=== PATIENT | male | born 1945 | race Caucasian/White ===

== ENCOUNTER → 2018-04-02 14:59 | Outpatient (CLI) | payer MEDICARE, SELFPAY ==
[2018-04-02 16:40] LABS: Thyroid Stimulating Hormone 2.01 uIU/mL (0.47-4.68)
== END ==
PROVIDERS: PCP Internal Medicine; Visit Provider Internal Medicine
DX: R63.4 Abnormal weight loss (principal)
CPT/HCPCS: 36415; 84443

== ENCOUNTER → 2019-02-19 13:49 | Outpatient (CLI) | payer MEDICARE, SELFPAY ==
[2019-02-19 14:25] LABS: BUN Creatinine Ratio 23.3 (6-22); Blood Urea Nitrogen 21 mg/dL (9-20); Carbon Dioxide 27 mmol/L (22-32); Chloride 100 mmol/L (98-107); Estimated Glomerular Filt Rate > 60.0 mL/min (>60); Glucose 89 mg/dL (80-110); HEMOLYSIS < 15 (0-50); Potassium 4.8 mmol/L (3.4-5.1); Sodium 139 mmol/L (137-145); Uric Acid 3.7 mg/dL (3.5-8.5)
[2019-02-19 16:02] LABS: Vitamin D 25 Hydroxy (D3) 31.1 ng/mL (30.0-100.0)
== END ==
PROVIDERS: PCP Student in an Organized Health Care Education/Training Program; Visit Provider Student in an Organized Health Care Education/Training Program
DX: E55.9 Vitamin D deficiency, unspecified (principal); I10 Essential (primary) hypertension; N20.0 Calculus of kidney
CPT/HCPCS: 36415; 80048; 82306; 84550

== ENCOUNTER → 2019-05-18 09:50 | Outpatient (CLI) | payer MEDICARE, SELFPAY ==
[2019-05-18 10:00] LABS: Bacteria Urine None Seen; RBC Urine None Seen (0-5/HPF); WBC Urine None Seen (0-5/HPF)
[2019-05-18 11:11] LABS: Hematocrit 41.1 % (41-53); Hemoglobin 13.9 g/dL (13.5-17.5); Mean Corpuscular HGB Conc 33.9 % (30-36); Mean Corpuscular Hemoglobin 31.7 PG (26-34); Mean Corpuscular Volume 93.4 fL (80-100); Platelet Count 187 X10^3/uL (150-400); Red Cell Distribution Width 12.7 % (11.6-14.8); White Blood Cell Count 4.2 X10^3/uL (4.5-11.0)
[2019-05-18 11:25] LABS: Neutrophils Absolute Manual 2688 /uL (3000-5900); RBC Morphology Normal Morphology; Total Cells Counted 100
[2019-05-18 12:31] LABS: Appearance Urine UA CLEAR; Bilirubin Urine UA NEGATIVE (NEGATIVE); Color Urine UA YELLOW; Glucose Urine UA NEGATIVE (Negative); Ketones Urine UA NEGATIVE (NEGATIVE); Leukocyte Esterase Urine UA NEGATIVE (NEGATIVE); Nitrite Urine UA NEGATIVE (Negative); Occult Blood Urine UA NEGATIVE (Negative); Protein Urine UA NEGATIVE (Negative); Specific Gravity Urine UA 1.015 (1.000-1.035); Urobilinogen Urine UA 0.2 E.U./dL (0.2); pH Urine UA 6.5 (4.5-8.0)
[2019-05-18 12:41] LABS: Culture Indicated Urine Cult Not Indicated; Urine Comments Microscopic Normal
== END ==
PROVIDERS: PCP Student in an Organized Health Care Education/Training Program; Visit Provider Nurse Practitioner
DX: R50.9 Fever, unspecified (principal); R68.84 Jaw pain; R35.0 Frequency of micturition
CPT/HCPCS: 36415; 81001; 85025

== ENCOUNTER → 2020-03-02 13:46 | Outpatient (CLI) | payer MEDICARE, SELFPAY ==
[2020-03-02 16:13] LABS: BUN Creatinine Ratio 23.3 (6-22); Blood Urea Nitrogen 21 mg/dL (9-20); Calcium 9.7 mg/dL (8.4-10.2); Carbon Dioxide 29 mmol/L (22-32); Chloride 101 mmol/L (98-107); Estimated Glomerular Filt Rate > 60.0 mL/min (>60); Glucose 86 mg/dL (80-110); HEMOLYSIS < 15 (0-50); Potassium 4.3 mmol/L (3.4-5.1); Sodium 138 mmol/L (137-145)
== END ==
PROVIDERS: PCP Student in an Organized Health Care Education/Training Program; Referring Provider Student in an Organized Health Care Education/Training Program; Visit Provider Student in an Organized Health Care Education/Training Program
DX: I10 Essential (primary) hypertension (principal)
CPT/HCPCS: 36415; 80048

== ENCOUNTER → 2020-03-08 11:56 | Outpatient (CLI) | payer MEDICARE, SELFPAY ==
[2020-03-09 08:50] LABS: Fecal Immunochemical Test Negative (Negative)
== END ==
PROVIDERS: PCP Student in an Organized Health Care Education/Training Program; Referring Provider Student in an Organized Health Care Education/Training Program; Visit Provider Student in an Organized Health Care Education/Training Program
DX: Z12.11 Encounter for screening for malignant neoplasm of colon (principal)
CPT/HCPCS: 82274

== ENCOUNTER → 2020-11-23 13:48 | Outpatient (CLI) | payer MEDICARE, OTHER, SELFPAY ==
[2020-11-23] MEDS: COVID-19 VACC #1, MRNA(MOD) 100 MCG/0.5 ML VIAL IM (14:00)
== END ==
PROVIDERS: PCP Student in an Organized Health Care Education/Training Program; Visit Provider Internal Medicine
DX: Z23 Encounter for immunization (principal)
CPT/HCPCS: 0011A; 91301

== ENCOUNTER → 2020-12-21 13:23 | Outpatient (CLI) | payer MEDICARE, OTHER, SELFPAY ==
[2020-12-21] MEDS: COVID-19 VACC #2, MRNA(MOD) 100 MCG/0.5 ML VIAL IM (13:33)
== END ==
PROVIDERS: PCP Student in an Organized Health Care Education/Training Program; Visit Provider Internal Medicine
DX: Z23 Encounter for immunization (principal)
CPT/HCPCS: 0012A; 91301

== ENCOUNTER → 2021-11-23 13:25 | Outpatient (CLI) | payer MEDICARE, OTHER, SELFPAY ==
[2021-11-23 14:29] LABS: BUN Creatinine Ratio 23.1 (6-22); Blood Urea Nitrogen 24 mg/dL (9-20); Calcium 9.7 mg/dL (8.4-10.2); Carbon Dioxide 29 mmol/L (22-32); Chloride 103 mmol/L (98-107); Cholesterol 148 mg/dL (140-199); Estimated Glomerular Filt Rate > 60.0 mL/min (>60); Glucose 94 mg/dL (80-110); HDL Cholesterol 53 mg/dL (40-60); HEMOLYSIS < 15 (0-50); LDL Cholesterol Calculated 68 mg/dL (<100); Potassium 4.6 mmol/L (3.4-5.1); Sodium 139 mmol/L (137-145); Triglycerides 134 mg/dL (35-150); Uric Acid 3.2 mg/dL (3.5-8.5)
== END ==
PROVIDERS: PCP Student in an Organized Health Care Education/Training Program; Referring Provider Student in an Organized Health Care Education/Training Program; Visit Provider Student in an Organized Health Care Education/Training Program
DX: I10 Essential (primary) hypertension (principal); E78.5 Hyperlipidemia, unspecified; N20.0 Calculus of kidney
CPT/HCPCS: 36415; 80048; 80061; 84550

== ENCOUNTER → 2022-12-24 14:34 | Outpatient (CLI) | payer MEDICARE, OTHER, SELFPAY ==
[2022-12-24 15:22] LABS: BUN Creatinine Ratio 25.6 (6-22); Blood Urea Nitrogen 23 mg/dL (9-20); Calcium 9.3 mg/dL (8.4-10.2); Carbon Dioxide 27 mmol/L (22-32); Chloride 101 mmol/L (98-107); Estimated Glomerular Filt Rate > 60 mL/min (>60); Glucose 89 mg/dL (80-110); HEMOLYSIS < 15 (0-50); Potassium 4.2 mmol/L (3.4-5.1); Sodium 137 mmol/L (137-145)
[2022-12-24 17:11] LABS: Hep C Virus Ab w/Reflex Quant NEGATIVE s/c (NEGATIVE)
== END ==
PROVIDERS: PCP Student in an Organized Health Care Education/Training Program; Referring Provider Student in an Organized Health Care Education/Training Program; Visit Provider Student in an Organized Health Care Education/Training Program
DX: Z11.59 Encounter for screening for other viral diseases (principal); I10 Essential (primary) hypertension
CPT/HCPCS: 36415; 80048; 86803

== ENCOUNTER → 2023-11-21 14:12 | Outpatient (CLI) | payer MEDICARE, OTHER, SELFPAY ==
[2023-11-21 15:18] LABS: Hematocrit 40.1 % (41-53); Hemoglobin 13.8 g/dL (13.5-17.5); Mean Corpuscular HGB Conc 34.3 % (30-36); Mean Corpuscular Hemoglobin 32.2 PG (26-34); Mean Corpuscular Volume 93.9 fL (80-100); Platelet Count 176 X10^3/uL (150-400); Red Blood Cell Count 4.27 X10^6/uL (4.5-5.9); Red Cell Distribution Width 13.4 % (11.6-14.8); White Blood Cell Count 5.7 X10^3/uL (4.5-11.0)
[2023-11-21 15:44] LABS: Alanine Aminotransferase 23 IU/L (<50); Albumin 4.8 g/dL (3.5-5.0); Albumin Globulin Ratio 1.7 (1.0-2.8); Alkaline Phosphatase 63 U/L (38-126); Aspartate Aminotransferase 33 IU/L (17-59); BUN Creatinine Ratio 27.7 (6-22); Blood Urea Nitrogen 28 mg/dL (9-20); Carbon Dioxide 25 mmol/L (22-32); Chloride 102 mmol/L (98-107); Cholesterol 174 mg/dL (140-199); Estimated Glomerular Filt Rate > 60 mL/min (>60); Globulin 2.9 g/dL (1.7-4.1); Glucose 93 mg/dL (80-110); HDL Cholesterol 49 mg/dL (40-60); HEMOLYSIS < 15 (0-50); LDL Cholesterol Calculated 109 mg/dL (<100); Potassium 4.6 mmol/L (3.4-5.1); Sodium 137 mmol/L (137-145); Total Protein 7.7 g/dL (6.3-8.2); Triglycerides 82 mg/dL (35-150)
[2023-11-21 16:15] LABS: TSH w/ Reflex to FT4 1.75 uIU/mL (0.47-4.68)
[2023-11-21 16:16] LABS: Prostate Specific Antigen 2.44 ng/mL (0.10-4.00)
== END ==
PROVIDERS: PCP Internal Medicine; Referring Provider Internal Medicine; Visit Provider Internal Medicine
DX: E78.2 Mixed hyperlipidemia (principal); I10 Essential (primary) hypertension; N40.0 Benign prostatic hyperplasia without lower urinary tract symptoms
CPT/HCPCS: 36415; 80053; 80061; 84153; 84443; 85027

== ENCOUNTER → 2023-11-29 16:02 | Outpatient (CLI) | payer MEDICARE, OTHER, SELFPAY ==
[2023-12-02 13:25] LABS: Fecal Immunochemical Test Negative (Negative)
== END ==
PROVIDERS: PCP Internal Medicine; Referring Provider Internal Medicine; Visit Provider Internal Medicine
DX: Z12.11 Encounter for screening for malignant neoplasm of colon (principal)
CPT/HCPCS: 82274

== ENCOUNTER 2024-07-15 08:36 | Day surgery (SDC) | payer MEDICARE, OTHER, SELFPAY ==
[2024-07-14 08:45] VITALS: BMI 23.9
[2024-07-15] VITALS (8 sets, daily range): BP systolic 110–145; BP diastolic 56–80; PULSE 65–77; RESP 12–22; TEMP 36.2–36.6; O2SAT 97–99; BMI 23.9
[2024-07-15] MEDS: LACTATED RINGERS 1,000 ML 42 ML IV ×2 (09:37→10:51)
--- NOTE | 2024-07-15 09:50 | PM.HP.1 ---
History of Present Illness History of Present Illness Date Patient Seen: 07/15/24 Time Patient Seen: 09:50 Chief complaint: [facility] [place] Narrative: 79M with a symptomatic right inguinal hernia here for elective laparoscopic repair. No interval change in health [facility] Medical History Osteoarthritis of cervical spine without myelopathy Inguinal hernia of right side without obstruction or gangrene Allergic rhinitis Erectile dysfunction Mixed hyperlipidemia Mumps Chicken pox Measles Pneumonia (2012) Fractures (1984) Shingles (2003) Sensorineural hearing loss (2006) BPH (benign prostatic hyperplasia) (2012) Hemorrhoids (1983) Skin cancer (1993) Cataract of both eyes (06/25/14) Hearing loss (03/06/12) Surgical History Anesthesia History of surgery (1983) History of lithotripsy (1999) Status post rotator cuff repair (2008) Status post colonoscopy (2009) Family History Child Age: 54 Hypertension High cholesterol Child Age: 51 High cholesterol Father High cholesterol Stroke Pneumonia Mother Dementia Intestinal obstruction Brother Brain tumor Cancer Social History household members: spouse Smoking Status: Former smoker alcohol intake: current Meds Home Medications and Allergies Home Medications Medication Instructions Recorded Confirmed Type cyclobenzaprine 10 mg tablet 10 mg PO TID PRN muscle spasm #20 11/21/16 07/15/24 Rx tabs ascorbic acid (vitamin C) 1,000 mg 1 g PO Q6H 11/21/23 07/15/24 History capsule cholecalciferol (vitamin D3) 50 50 mcg PO DAILY 11/21/23 07/15/24 History mcg (2,000 unit) capsule omega 8-xyh-zkw-fish oil 300 1 cap PO DAILY 11/21/23 07/15/24 History mg-1,000 mg capsule (Fish Oil) tadalafil 20 mg tablet 20 mg PO DAILY PRN sexual activity 11/21/23 07/15/24 Rx #30 tabs allopurinol 300 mg tablet 300 mg PO DAILY #90 tabs 12/17/23 07/15/24 Rx lisinopril 10 mg tablet 10 mg PO DAILY #90 tabs 12/17/23 07/15/24 Rx simvastatin 40 mg tablet 40 mg PO DAILY #90 tabs 12/17/23 07/15/24 Rx tamsulosin 0.4 mg capsule 0.8 mg (2 x 0.4 mg) PO BEDTIME 12/17/23 07/15/24 Rx #180 caps trazodone 50 mg tablet 50 mg PO BEDTIME PRN insomnia #90 12/17/23 07/15/24 Rx tabs Allergies Allergy/AdvReac Type Severity Reaction Status Date / Time grass pollen-perennial rye, Allergy Verified 07/15/24 09:05 standar house dust Allergy Verified 07/15/24 09:05 Exam Vital Signs (past 8 hours): - 07/15/24 09:19 Temperature 97.6 F Pulse Rate 77 Respiratory Rate 16 Blood Pressure 144/78 H Pulse Oximetry 97 Oxygen Delivery Method Room Air Oxygen Delivery Method Room Air Narrative Exam Narrative: General adult man alert oriented no acute distress Chest nonlabored respiration Abdomen right marked with my initials Extremities warm well perfused Assessment & Plan Assessment and plan (1) Inguinal hernia of right side without obstruction or gangrene: Status: Acute Assessment & Plan narrative: 79-year-old man with dramatic reducible right inguinal hernia here for laparoscopic repair. Overview of the operation once again reviewed. We discussed postoperative care and activity restriction. Operative risks including hemorrhage, infection, chronic pain, recurrence were reviewed. His questions have been answered. He provides his consent to proceed Time-Based Coding :: [TOTAL MINUTES] spent with patient and on the chart (including review of chart, obtaining history, exam, reviewing outside data, placing orders, documenting exam and treatment plan, and counseling patient) on [DATE].
[2024-07-15] MEDS: CEFAZOLIN 2 GM/100 ML PREMIX 100 ML IV (10:14)
--- NOTE | 2024-07-15 10:16 | SUR.OPER ---
Supine on padded OR bed, head on pillow, arms padded and tucked at sides, legs uncrossed, safety belt at thigh, tape over blanket over lower legs .
[2024-07-15] MEDS: BUPIVACAINE 0.25% (PF) VIAL 30 ML INJ (10:22)
--- NOTE | 2024-07-15 11:58 | SUR.OPER ---
Patient scheduled for a right sided laparoscopic hernia repair. Intraoperatively it was noted patient had a hernia on left side as well. Procedure changed to bilateral laparoscopic inguinal hernia repair. Surgeon to follow up with patient.
--- NOTE | 2024-07-15 12:06 | P.OP_ITS ---
Operative Date/Time/Diagnoses Date of procedure: 07/15/24 Time of procedure: 12:07 Pre-op diagnosis: right inguinal hernia Post-op diagnosis: other (bilateral inguinal hernia) Procedure & Clinicians Procedure: Laparoscopic bilateral inguinal hernia repair Same procedure as scheduled: Yes Indications: Symptomatic inguinal hernias Surgeon: Pio Ardon Architectural Intern: Zeke Solorzano Anesthesia Type: General Operative Notes Findings: Bilateral inguinal hernia Right-direct and indirect Left-indirect Specimen(s): none sent Estimated Blood Loss (mL): 20 Procedure in detail: The patient was brought to the operating room and placed supine on the table. Bilateral sequential compression devices were applied. General anesthesia was induced and they were intubated with an endotracheal tube. A conteh cath was placed in sterile fashion. They received 2g ancef prior to skin incision. They were prepped and draped in sterile fashion. A time out was performed to ensure the correct patient, procedure and necessary equipment within the operating room. The skin was infiltrated with 0.25% bupivicaine. A 1 cm supra umbilical midline incision was made. The fascia was sharply incised and the abdomen entered traumatically. A 10mm balloon port was placed and pneumoperitoneum was established at 15mm Hg. Inspection of the abdomen demonstrated no evidence of injury upon entry. Two 5 mm ports were then placed under direct visualization in the right and left lower quadrant lateral to the rectus muscle. A right direct and indirect defect was identified. Unexpectantly there was a large left indirect hernia seen. 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 He has obtained a administrator health care facility for the next few weeks but it is quite difficult for him to take time away from his duties and therefore we decided to proceed with bilateral inguinal hernia repair so he would not require an additional surgery. Beginning with the right the peritoneum 4 cm superior to the deep inguinal ring between the medial umbilical ligament and the anterior superior iliac spine was incised. The medial preperitoneal dissection was carried out into the space of Retzius bluntly, the bladder was swept inferior, the pubis and Rey's ligament were identified. Next attention was turned towards the lateral aspect of the peritoneal flap. The preperitoneal fat with the testicular vessels was carefully dissected off the inferior peritoneal flap. The cord was carefully inspected there was a fat containing indirect defect which was skeletonized off of the cord. The attachments to the direct hernia sac were divided and the direct defect was reduced. A large Bard 3D Max mesh was then placed into the abdomen and positioned such that the myopectineal orifice was completely covered with good overlap on all sides. The peritoneal flap was then repositioned back to its original position and a running V lock suture was used to close the peritoneum such that no bowel could herniate into the preperitoneal space. The area was examined for hemostasis. On the left the peritoneum 4 cm superior to the deep inguinal ring between the medial umbilical ligament and the anterior superior iliac spine was incised. The medial preperitoneal dissection was carried out into the space of Retzius bluntly, the bladder was swept inferiorly, the pubis and Rey's ligament were identified. Next attention was turned towards the lateral aspect of the peritoneal flap. The preperitoneal fat with the testicular vessels was c arefully dissected off the inferior peritoneal flap. The cord was carefully inspected there was large indirect hernia which was skeltonized off the cord preserving the testicular vessels and the vas deferns. There was no direct hernia. A large Bard 3D Max mesh was then placed into the abdomen and positioned such that the myopectineal orifice was completely covered with good overlap on all sides. The peritoneal flap was then repositioned back to its original position and a running V lock suture was used to close the peritoneum such that no bowel could herniate into the preperitoneal space. The area was examined for hemostasis. The 5mm trocars were removed under direct visualization and pneumoperitoneum was deflated through the umbilical trocar, The fascia at the umbilicus was closed w ith 0-Vicryl in figure of 8 fashion, skin closed with 4-0 Monocyl followed by Dermabond. The sponge and instrument count at the end of the case was correct. Both testicles were entirely within the scrotum at the end of the case. The patient emerged from anesthsia was extubated and transferred to recovery in stable condition. Complications: none Post-operative Condition: stable Disposition: same day surgery
== END 2024-07-15 12:52 | disposition home or self-care (01) ==
PROVIDERS: PCP Internal Medicine; Referring Provider Surgery; Visit Provider Surgery
PROC: 0YQ64ZZ Repair Left Inguinal Region, Percutaneous Endoscopic Approach (ICD-10-PCS; CPT 49650; principal; 2024-07-15 10:45)
DX: K40.20 Bilateral inguinal hernia, without obstruction or gangrene, not specified as recurrent (principal)
CPT/HCPCS: 49650; 82962; J0330; J0690; J1100; J2405; J2704; J3010

== ENCOUNTER → 2025-06-03 15:34 | Outpatient (CLI) | payer MEDICARE, OTHER, SELFPAY ==
[2025-06-03 16:16] LABS: Hematocrit 38.4 % (41-53); Hemoglobin 13.1 g/dL (13.5-17.5); Mean Corpuscular HGB Conc 34.2 % (30-36); Mean Corpuscular Hemoglobin 32.3 PG (26-34); Mean Corpuscular Volume 94.3 fL (80-100); Platelet Count 178 X10^3/uL (150-400)
[2025-06-03 16:53] LABS: INR 0.9 (0.9-1.3); Prothrombin Time 10.4 SECONDS (9.4-12.5)
[2025-06-03 16:55] LABS: PTT Partial Thromboplastin Tim 29 SECONDS (25.1-36.5)
[2025-06-03 17:01] LABS: Alanine Aminotransferase 20 IU/L (<50); Albumin 4.8 g/dL (3.5-5.0); Albumin Globulin Ratio 2.0 (1.0-2.8); Alkaline Phosphatase 64 U/L (38-126); Blood Urea Nitrogen 26 mg/dL (9-20); Calcium 10.0 mg/dL (8.4-10.2); Carbon Dioxide 26 mmol/L (22-32); Chloride 102 mmol/L (98-107); Cholesterol 179 mg/dL (140-199); Estimated Glomerular Filt Rate > 60 mL/min (>60); Globulin 2.4 g/dL (1.7-4.1); Glucose 90 mg/dL (70-99); HDL Cholesterol 49 mg/dL (40-60); HEMOLYSIS < 15 (0-50); Potassium 4.2 mmol/L (3.4-5.1); Sodium 140 mmol/L (137-145); Total Protein 7.2 g/dL (6.3-8.2); Triglycerides 202 mg/dL (35-150); Uric Acid 3.0 mg/dL (3.5-8.5)
[2025-06-03 17:31] LABS: Prostate Specific Antigen 2.33 ng/mL (0.10-4.00)
[2025-06-03 17:32] LABS: TSH w/ Reflex to FT4 1.96 uIU/mL (0.47-4.68)
== END ==
PROVIDERS: PCP Internal Medicine; Referring Provider Internal Medicine; Visit Provider Internal Medicine
DX: R35.1 Nocturia (principal); R23.3 Spontaneous ecchymoses; E78.2 Mixed hyperlipidemia; N40.1 Benign prostatic hyperplasia with lower urinary tract symptoms; N20.0 Calculus of kidney
CPT/HCPCS: 36415; 80053; 80061; 84153; 84443; 84550; 85027; 85610; 85730

== ENCOUNTER → 2025-06-07 15:12 | Outpatient (CLI) | payer MEDICARE, OTHER, SELFPAY | PROVIDERS: PCP Internal Medicine; Referring Provider Internal Medicine; Visit Provider Internal Medicine | DX: Z12.11 Encounter for screening for malignant neoplasm of colon (principal) | CPT/HCPCS: 82274 ==

== ENCOUNTER 2025-07-08 11:39 | Day surgery (SDC) | payer MEDICARE, OTHER, SELFPAY ==
--- NOTE | 2025-07-08 | PATH_ITS ---
[facility] Accession Number: [id number] No. of containers..01 Tissue . 01 Material submitted: . colon - COLON, ASCENDING POLYP . 01 Diagnosis: COLON, ASCENDING POLYP: Tubular adenoma. [facility] 07/19/2025 1232 Local . 01 Electronically signed: . Kt Martinez MD, Pathologist NPI- [id number] . 01 Gross description: . Received in formalin with two identifiers and ascending colon polyp are six wheat soft tissue fragments ranging from 0.1 to 0.5 cm in greatest dimension, entirely submitted in A1. ([id number]:[id number]) /MRV 07/19/2025 1232 Local . 01 Pathologist provided ICD-10: D12.2 . 01 CPT . 988183 Specimen Comment: A courtesy copy of this report has been sent to [phone] Performed at: [address] [id number] MD Kt Martinez MD Phone: [phone]
[2025-07-08] MEDS: LACTATED RINGERS 1,000 ML 42 ML IV (11:50)
[2025-07-08 12:03] VITALS: BP 142/54; PULSE 90; RESP 15; TEMP 36.2; O2SAT 97
--- NOTE | 2025-07-08 12:33 | PM.HP.IH.1 ---
History of Present Illness History of Present Illness Date Patient Seen: 07/08/25 Time Patient Seen: 12:33 Chief complaint: [facility] [place] Narrative: Alvin is an 80-year-old man here for colonoscopy today. He recently had a positive fit test. His last colonoscopy was over 10 years ago. [facility] Medical History (Updated 06/10/25 @ 14:43 by Boaz Cardenas MD) Positive FIT (fecal immunochemical test) Actinic keratosis BPH w urinary obs/LUTS Osteoarthritis of cervical spine without myelopathy Inguinal hernia of right side without obstruction or gangrene Allergic rhinitis Erectile dysfunction Mixed hyperlipidemia Mumps Chicken pox Measles Pneumonia (2012) Fractures (1984) Shingles (2003) Sensorineural hearing loss (2006) BPH (benign prostatic hyperplasia) (2012) Hemorrhoids (1983) Skin cancer (1993) Cataract of both eyes (06/25/14) Hearing loss (03/06/12) Surgical History H/O bilateral inguinal hernia repair (07/15/24) Anesthesia History of surgery (1983) History of lithotripsy (1999) Status post rotator cuff repair (2008) Status post colonoscopy (2009) Family History Child Age: 54 Hypertension High cholesterol Child Age: 51 High cholesterol Father High cholesterol Stroke Pneumonia Mother Dementia Intestinal obstruction Brother Brain tumor Cancer Social History household members: spouse Smoking Status: Former smoker Tobacco: How many years used: 5 alcohol intake: never caffeine: Yes Type(s) of exercise: walking Meds Home Medications and Allergies Home Medications ?Medication ?Instructions ?Recorded ?Confirmed ?Type cyclobenzaprine 10 mg tablet 10 mg PO TID PRN muscle spasm #20 11/21/16 07/08/25 Rx tabs ascorbic acid (vitamin C) 1,000 mg 1 g PO Q6H 11/21/23 07/08/25 History capsule cholecalciferol (vitamin D3) 50 50 mcg PO DAILY 11/21/23 07/08/25 History mcg (2,000 unit) capsule omega 5-sgu-yfw-fish oil 300 1 cap PO DAILY 11/21/23 07/08/25 History mg-1,000 mg capsule (Fish Oil) tadalafil 20 mg tablet 20 mg PO DAILY PRN sexual activity 11/21/23 07/08/25 Rx #30 tabs acetaminophen 325 mg capsule 650 mg (2 x 325 mg) PO QID PRN 07/15/24 07/08/25 Rx (Tylenol) pain #60 caps allopurinol 300 mg tablet 300 mg PO DAILY #90 tabs 12/22/24 07/08/25 Rx lisinopril 10 mg tablet 10 mg PO DAILY #90 tabs 12/22/24 07/08/25 Rx simvastatin 40 mg tablet 40 mg PO DAILY #90 tabs 12/22/24 07/08/25 Rx tamsulosin 0.4 mg capsule 0.8 mg (2 x 0.4 mg) PO BEDTIME 12/22/24 07/08/25 Rx #180 caps trazodone 50 mg tablet 50 mg PO BEDTIME PRN insomnia #90 12/22/24 07/08/25 Rx tabs Allergies Allergy/AdvReac Type Severity Reaction Status Date / Time grass pollen-perennial rye, Allergy Verified 06/10/25 15:22 standar house dust Allergy Verified 06/10/25 15:22 Exam Vital Signs (past 8 hours): - 07/08/25 12:03 Temperature 97.2 F L Pulse Rate 90 Respiratory Rate 15 Blood Pressure 142/54 H Pulse Oximetry 97 Oxygen Delivery Method Room Air Oxygen Delivery Method Room Air Const General: No acute distress Assessment & Plan Assessment and plan (1) Positive FIT (fecal immunochemical test): Status: Acute Plan Colonoscopy Time-Based Coding :: [TOTAL MINUTES] spent with patient and on the chart (including review of chart, obtaining history, exam, reviewing outside data, placing orders, documenting exam and treatment plan, and counseling patient) on [DATE]. PROFEE Electrician'S Assistant Document charge(s): No
[2025-07-08 13:01] VITALS: BP 103/55; PULSE 60; RESP 16; TEMP 36.1; O2SAT 97
--- NOTE | 2025-07-08 13:03 | PM.OP.COLON ---
Operative Date/Time/Diagnoses Date of procedure: 07/08/25 Time of procedure: 13:03 Pre-op diagnosis: Positive fit test Post-op diagnosis: same Procedure & Clinicians Study performed: Colonoscopy Same procedure(s) as scheduled: Yes Surgeon: Simba Monsalve Anesthesia Type: MAC +/- Procedure Notes Procedure in detail: Surgeon: Simba Monsalve MD Anesthesia: Lakesha Keke MANAGER OF HEALTH Procedure: The patient was brought to the endoscopy suite, placed in left lateral decubitus position. The patient was connected to monitoring devices. A time-out was performed. Sedation was administered. Once the patient was adequately sedated, a digital rectal exam was performed and was normal. The scope was then inserted and advanced to the cecum where the appendiceal orifice was identified and photographed. The scope was then slowly withdrawn over greater than 6 minutes. The mucosa was thoroughly inspected. There was 1 small polyp roughly 5 mm in the ascending colon and removed with a cold snare. The scope was retroflexed in the rectum. No other abnormalities were found. The scope was straightened and removed. The patient was awakened and brought to recovery. Scope withdrawal time: 8 minutes Sedation time: 18 minutes EBL: 2 mL Findings: Small polyp in the ascending colon Post-procedure Disposition: PACU
[2025-07-08 13:05] VITALS: BP 102/57; PULSE 55; RESP 21; TEMP 36.1; O2SAT 96
[2025-07-08 13:10] VITALS: BP 120/64; PULSE 73; RESP 16; TEMP 36.1; O2SAT 99
[2025-07-08 13:15] VITALS: BP 127/69; PULSE 70; RESP 16; TEMP 36.2; O2SAT 98
[2025-07-08 13:36] VITALS: BP 142/84; PULSE 90; RESP 16; TEMP 36.2; O2SAT 98
== END 2025-07-08 13:50 | disposition home or self-care (01) ==
PROVIDERS: PCP Internal Medicine; Referring Provider Surgery; Visit Provider Surgery
PROC: 0DJD8ZZ Inspection of Lower Intestinal Tract, Via Natural or Artificial Opening Endoscopic (ICD-10-PCS; CPT 45378; principal; 2025-07-08 12:45)
DX: Z12.11 Encounter for screening for malignant neoplasm of colon (principal); R19.5 Other fecal abnormalities; Z87.891 Personal history of nicotine dependence; D12.2 Benign neoplasm of ascending colon
CPT/HCPCS: 45385; J2704

== ENCOUNTER → 2025-09-13 14:39 | Outpatient (CLI) | payer MEDICARE, OTHER, SELFPAY ==
[2025-09-13 15:39] LABS: Hematocrit 37.8 % (41-53); Hemoglobin 12.8 g/dL (13.5-17.5); Mean Corpuscular HGB Conc 34.0 % (30-36); Mean Corpuscular Hemoglobin 32.0 PG (26-34); Mean Corpuscular Volume 94.1 fL (80-100); Platelet Count 170 X10^3/uL (150-400)
[2025-09-13 16:54] LABS: Ferritin 291 ng/mL (18-464)
[2025-09-13 17:33] LABS: HEMOLYSIS < 15 (0-50); Iron 95 ug/dL (49-181)
[2025-09-13 17:46] LABS: Percent Iron Saturation 32 % (20-50); Total Iron Binding Capacity 294 ug/dL (261-462); Transferrin 248 mg/dL (206-381)
[2025-09-13 18:30] LABS: Vitamin B12 Reflex MMA if <400 593 pg/mL (239-931)
== END ==
PROVIDERS: PCP Internal Medicine; Referring Provider Internal Medicine; Visit Provider Internal Medicine
DX: E53.8 Deficiency of other specified B group vitamins (principal); D64.9 Anemia, unspecified
CPT/HCPCS: 36415; 82607; 82728; 83540; 83550; 85027